=== PATIENT | male | born 1970 | race African-American/Black ===

== ENCOUNTER 2018-04-18 12:26 | Inpatient (IN) ==
[2018-04-18] MEDS ORDERED: ASPIRIN 325 MG TABLET PO STA (13:10)
[2018-04-18 13:33] LABS: Basophils % 0.4 % (0.0-0.8); Eosinophils # 0.2 10*3/uL (0.0-0.87); Eosinophils % 3.2 % (0.00-10.9); Hematocrit 41.6 VOL% (42.0-52.0); Immature Granulocytes % 0.3 %; Immature Granulocytes Absolute 0.02 #; Lymphocytes # 1.7 10*3/uL (1.4-4.0); Lymphocytes % 24.4 % (21.2-54.2); Mean Corpuscular HGB Conc 31.3 GM/DL (32-36); Mean Corpuscular Hemoglobin 22 PG (27-34); Mean Corpuscular Volume 70.5 FL (87-102); Mean Platelet Volume 10.2 FL (9.6-12.0); Monocytes # 0.9 10*3/uL (0.11-0.8); Monocytes % 12.5 % (1.7-12.7); Neutrophils # 4.1 10*3/uL (1.4-7.4); Neutrophils % 59.2 % (38.7-73.9); Platelet Count 254 T/CUMM (130-400); Red Cell Distribution Width 17.6 % (9.3-17.3)
[2018-04-18 13:53] LABS: Albumin 3.7 G/DL (3.4-5.0); Bilirubin,Total 0.5 MG/DL (0.2-1.0); Calcium 9.4 MG/DL (8.5-10.1); Osmolality,Calculated 292.4 MOS/KG (273-304); Potassium 3.6 MMOL/L (3.5-5.1); Total Protein 7.9 G/DL (6.4-8.3)
[2018-04-18] MEDS ORDERED: ZALEPLON 5 MG CAPSULE PO PRN (14:00)
[2018-04-18] MEDS ORDERED: MORPHINE 4 MG/1 ML VIAL IV PRN (14:00)
[2018-04-18] MEDS ORDERED: ONDANSETRON 4 MG/2 ML VIAL IV PRN (14:00)
[2018-04-18] MEDS ORDERED: DOCUSATE SODIUM 100 MG CAPSULE PO PRN (14:00)
[2018-04-18] MEDS ORDERED: MAGNESIUM SULF RIDER 2 GM in PREMIX 1 EACH IV PRN (14:00)
[2018-04-18] MEDS ORDERED: MAGNESIUM SULF RIDER 4 GM in PREMIX 1 EACH IV PRN (14:00)
[2018-04-18] MEDS ORDERED: POTASSIUM CHLORIDE 20 MEQ TABLET PO ONE (16:26)
[2018-04-18] MEDS ORDERED: GLUCAGON 1 MG VIAL IM PRN (16:32)
[2018-04-18] MEDS ORDERED: DEXTROSE 50% 25 GM/50 ML VIAL IV PRN (16:32)
[2018-04-18 18:03] LABS: Apearance,Urine CLEAR (Clear); Bilirubin,Urine Negative (Negative); Blood, Urine Negative (Negative); Glucose,Urine (UA) Negative (Negative); Ketones,Urine Negative (Negative); Nitrite,Urine Negative (Negative); Protein,Urine Negative; Urine Color Yellow (Yellow); Urine Urobilinogen < 2.0 EU/DL (0.2-1.0); WBC,Urine <1 /HPF (0-6)
[2018-04-18] MEDS: ALBUTEROL 0.63 MG/3 ML NEB RESP TX SCH (19:38)
[2018-04-18] MEDS ORDERED: MONTELUKAST 10 MG TABLET PO SCH (21:00)
[2018-04-18] MEDS: CARVEDILOL 25 MG TABLET PO SCH (22:11)
[2018-04-18] MEDS: FUROSEMIDE 40 MG/4 ML VIAL IV SCH (22:11)
[2018-04-18] MEDS: CITALOPRAM 20 MG TABLET PO SCH (22:11)
[2018-04-19] MEDS: INSULIN REGULAR 100 UNIT/ML SUBCUT SCH ×5 (00:57→21:30)
[2018-04-19 05:53] LABS: Basophils % 0.7 % (0.0-0.8); Eosinophils # 0.3 10*3/uL (0.0-0.87); Eosinophils % 5.3 % (0.00-10.9); Hematocrit 39.7 VOL% (42.0-52.0); Hemoglobin 12.2 GM/DL (14.0-18.0); Immature Granulocytes % 0.2 %; Immature Granulocytes Absolute 0.01 #; Lymphocytes # 2.3 10*3/uL (1.4-4.0); Lymphocytes % 37.4 % (21.2-54.2); Mean Corpuscular HGB Conc 30.7 GM/DL (32-36); Mean Corpuscular Hemoglobin 22 PG (27-34); Mean Corpuscular Volume 70.5 FL (87-102); Mean Platelet Volume 10.8 FL (9.6-12.0); Monocytes # 0.7 10*3/uL (0.11-0.8); Monocytes % 12.1 % (1.7-12.7); Neutrophils # 2.7 10*3/uL (1.4-7.4); Neutrophils % 44.3 % (38.7-73.9); Platelet Count 242 T/CUMM (130-400); Red Blood Count 5.63 MC/CUMM (3.8-5.5); Red Cell Distribution Width 16.5 % (9.3-17.3)
[2018-04-19 06:06] LABS: Calcium 9.3 MG/DL (8.5-10.1); Osmolality,Calculated 293.8 MOS/KG (273-304); Potassium 3.9 MMOL/L (3.5-5.1); Risk Ratio 2.9
[2018-04-19] MEDS: ALBUTEROL 0.63 MG/3 ML NEB RESP TX SCH ×2 (07:27→19:45)
[2018-04-19] MEDS ORDERED: ASPIRIN EC 325 MG TABLET PO SCH (09:00)
[2018-04-19] MEDS ORDERED: PANTOPRAZOLE 40 MG TABLET PO SCH (09:00)
[2018-04-19] MEDS: CARVEDILOL 25 MG TABLET PO SCH ×2 (14:21→21:23)
[2018-04-19] MEDS: FUROSEMIDE 40 MG/4 ML VIAL IV SCH (14:22)
[2018-04-19] MEDS: ISOSORBIDE MONONITRATE 30 MG TABLET PO SCH (14:22)
[2018-04-19] MEDS: VITAMIN E 400 UNIT CAPSULE PO SCH (14:23)
[2018-04-19] MEDS: ALLOPURINOL 300 MG TABLET PO SCH (14:23)
[2018-04-19] MEDS: CHOLECALCIFEROL 400 UNIT TABLET PO SCH (14:23)
[2018-04-19] MEDS: MAGNESIUM OXIDE 400 MG TABLET PO SCH (14:23)
[2018-04-19] MEDS ORDERED: POTASSIUM CHLORIDE RIDER 10 MEQ in PREMIX 1 EACH IV PRN (18:48)
[2018-04-19] MEDS ORDERED: FLUTICASONE 50 MCG NASAL SPRAY 16 GM BOTTLE BOTH NARES PRN (18:50)
[2018-04-19] MEDS ORDERED: COLCHICINE 0.6 MG TABLET PO PRN (18:50)
[2018-04-19] MEDS ORDERED: ALBUTEROL 2.5 MG/3 ML NEB RESP TX PRN (18:50)
[2018-04-19] MEDS: SACUBITRIL/VALSARTAN 49-51 MG TABLET PO SCH (21:22)
[2018-04-19] MEDS: MONTELUKAST 10 MG TABLET PO SCH (21:23)
[2018-04-19] MEDS: CITALOPRAM 20 MG TABLET PO SCH (21:23)
[2018-04-20] MEDS: SODIUM CHLORIDE 0.45% 1,000 ML IV SCH (04:19)
[2018-04-20 04:22] LABS: Basophils # 0.1 10*3/uL (0.0-0.2); Basophils % 0.9 % (0.0-0.8); Eosinophils # 0.3 10*3/uL (0.0-0.87); Eosinophils % 5.5 % (0.00-10.9); Hematocrit 39.9 VOL% (42.0-52.0); Hemoglobin 12.4 GM/DL (14.0-18.0); Immature Granulocytes % 0.2 %; Immature Granulocytes Absolute 0.01 #; Lymphocytes # 1.9 10*3/uL (1.4-4.0); Lymphocytes % 34.3 % (21.2-54.2); Mean Corpuscular HGB Conc 31.1 GM/DL (32-36); Mean Corpuscular Hemoglobin 22 PG (27-34); Mean Platelet Volume 10.8 FL (9.6-12.0); Monocytes # 0.7 10*3/uL (0.11-0.8); Neutrophils # 2.7 10*3/uL (1.4-7.4); Neutrophils % 47.1 % (38.7-73.9); Platelet Count 242 T/CUMM (130-400); Red Blood Count 5.62 MC/CUMM (3.8-5.5); White Blood Count 5.7 T/CUMM (4-12)
[2018-04-20 04:49] LABS: Calcium 9.2 MG/DL (8.5-10.1); Osmolality,Calculated 288.8 MOS/KG (273-304); Potassium 3.4 MMOL/L (3.5-5.1)
[2018-04-20 04:52] LABS: % Iron Saturation 11.1 % (18-50)
[2018-04-20 05:00] LABS: Folate 21.1 NG/ML (5.4-24.0)
[2018-04-20] MEDS: ALBUTEROL 0.63 MG/3 ML NEB RESP TX SCH ×2 (07:22→19:38)
[2018-04-20] MEDS ORDERED: LIDOCAINE 1% 20 ML VIAL ONE (08:29)
[2018-04-20] MEDS ORDERED: HEPARIN/NACL 0.9% 2 UNITS/ML 1,000 ML IV ONE (08:29)
[2018-04-20] MEDS ORDERED: HEPARIN 5,000 UNIT/1 ML VIAL ONE (09:21)
[2018-04-20] MEDS ORDERED: VERAPAMIL 5 MG/2 ML VIAL ONE (09:21)
[2018-04-20] MEDS ORDERED: NITROGLYCERIN DRIP 50 MG/250 ML BOTTLE IV ONE (09:24)
[2018-04-20] MEDS ORDERED: ACETAMINOPHEN 325 MG TABLET PO PRN (10:03)
[2018-04-20] MEDS ORDERED: PHENYLEPHRINE 1 MG/10 ML SYRINGE IV ONE (10:08)
[2018-04-20] MEDS ORDERED: fentaNYL 100 MCG/2 ML VIAL ONE (10:08)
[2018-04-20] MEDS ORDERED: MIDAZOLAM 2 MG/2 ML VIAL ONE (10:09)
[2018-04-20] MEDS ORDERED: LIDOCAINE 2% 5 ML VIAL ONE (10:09)
[2018-04-20] MEDS ORDERED: PROPOFOL 200 MG/20 ML VIAL IV ONE (10:09)
[2018-04-20] MEDS ORDERED: SEVOFLURANE 1 UNIT/15 MINUTE INH ONE (10:28)
[2018-04-20] MEDS ORDERED: ePHEDrine 50 MG/ML AMP ONE (10:29)
[2018-04-20] MEDS: INSULIN REGULAR 100 UNIT/ML SUBCUT SCH ×4 (10:59→21:06)
[2018-04-20] MEDS: INSULIN LISPRO 100 UNIT/ML SUBCUT SCH ×3 (12:51→16:44)
[2018-04-20] MEDS: SPIRONOLACTONE 50 MG TABLET PO SCH (12:53)
[2018-04-20] MEDS: SACUBITRIL/VALSARTAN 49-51 MG TABLET PO SCH ×2 (12:53→21:06)
[2018-04-20] MEDS: MAGNESIUM OXIDE 400 MG TABLET PO SCH ×2 (12:53→12:57)
[2018-04-20] MEDS: MONTELUKAST 10 MG TABLET PO SCH ×2 (12:54→21:06)
[2018-04-20] MEDS: CHOLECALCIFEROL 400 UNIT TABLET PO SCH (12:54)
[2018-04-20] MEDS: ISOSORBIDE MONONITRATE 30 MG TABLET PO SCH (12:54)
[2018-04-20] MEDS: ALLOPURINOL 300 MG TABLET PO SCH (12:55)
[2018-04-20] MEDS: FERROUS SULFATE 325 MG TABLET PO SCH ×2 (12:55→21:06)
[2018-04-20] MEDS: VITAMIN E 400 UNIT CAPSULE PO SCH ×2 (12:55→12:58)
[2018-04-20] MEDS: PANTOPRAZOLE 40 MG TABLET PO SCH (12:55)
[2018-04-20] MEDS: CARVEDILOL 25 MG TABLET PO SCH ×2 (12:55→21:06)
[2018-04-20] MEDS: INSULIN ASPART PROTAMINE/ASPART 70/30 100 UNIT/ML SUBCUT SCH ×2 (12:58→19:45)
[2018-04-20] MEDS: ASPIRIN EC 81 MG TABLET PO SCH (12:58)
[2018-04-20] MEDS: ENOXAPARIN 40 MG/0.4 ML SYRINGE SUBCUT SCH (19:46)
[2018-04-20] MEDS: CITALOPRAM 20 MG TABLET PO SCH (21:06)
[2018-04-21] MEDS: ENOXAPARIN 40 MG/0.4 ML SYRINGE SUBCUT SCH
[2018-04-21] MEDS: SODIUM CHLORIDE 0.45% 1,000 ML IV SCH ×2 (01:23→08:27)
[2018-04-21] MEDS: ENOXAPARIN 30 MG/0.3 ML SYRINGE SUBCUT SCH (04:03)
[2018-04-21 05:14] LABS: Basophils % 0.8 % (0.0-0.8); Eosinophils # 0.3 10*3/uL (0.0-0.87); Eosinophils % 5.2 % (0.00-10.9); Hemoglobin 12.7 GM/DL (14.0-18.0); Immature Granulocytes % 0.2 %; Immature Granulocytes Absolute 0.01 #; Lymphocytes # 1.7 10*3/uL (1.4-4.0); Lymphocytes % 32.8 % (21.2-54.2); Mean Corpuscular HGB Conc 30.2 GM/DL (32-36); Mean Corpuscular Hemoglobin 22 PG (27-34); Mean Corpuscular Volume 71.4 FL (87-102); Mean Platelet Volume 11.2 FL (9.6-12.0); Monocytes # 0.6 10*3/uL (0.11-0.8); Monocytes % 11.9 % (1.7-12.7); Neutrophils # 2.6 10*3/uL (1.4-7.4); Neutrophils % 49.1 % (38.7-73.9); Platelet Count 260 T/CUMM (130-400); Red Blood Count 5.88 MC/CUMM (3.8-5.5); Red Cell Distribution Width 17.3 % (9.3-17.3); White Blood Count 5.2 T/CUMM (4-12)
[2018-04-21 05:31] LABS: Calcium 8.9 MG/DL (8.5-10.1); Potassium 3.6 MMOL/L (3.5-5.1)
[2018-04-21] MEDS: ALBUTEROL 0.63 MG/3 ML NEB RESP TX SCH ×2 (07:35→19:32)
[2018-04-21] MEDS: INSULIN REGULAR 100 UNIT/ML SUBCUT SCH ×4 (07:51→20:33)
[2018-04-21] MEDS: INSULIN LISPRO 100 UNIT/ML SUBCUT SCH ×3 (08:27→17:12)
[2018-04-21] MEDS: CHOLECALCIFEROL 400 UNIT TABLET PO SCH (08:28)
[2018-04-21] MEDS: VITAMIN E 400 UNIT CAPSULE PO SCH ×2 (08:29→13:32)
[2018-04-21] MEDS: MONTELUKAST 10 MG TABLET PO SCH ×2 (08:29→20:33)
[2018-04-21] MEDS: PANTOPRAZOLE 40 MG TABLET PO SCH (08:29)
[2018-04-21] MEDS: SPIRONOLACTONE 50 MG TABLET PO SCH (08:29)
[2018-04-21] MEDS: ISOSORBIDE MONONITRATE 30 MG TABLET PO SCH (08:29)
[2018-04-21] MEDS: ALLOPURINOL 300 MG TABLET PO SCH (08:30)
[2018-04-21] MEDS: CARVEDILOL 25 MG TABLET PO SCH (08:30)
[2018-04-21] MEDS: MAGNESIUM OXIDE 400 MG TABLET PO SCH ×2 (08:30→13:26)
[2018-04-21] MEDS: SACUBITRIL/VALSARTAN 49-51 MG TABLET PO SCH ×2 (08:30→20:37)
[2018-04-21] MEDS: FERROUS SULFATE 325 MG TABLET PO SCH ×2 (08:30→20:33)
[2018-04-21] MEDS: ASPIRIN EC 81 MG TABLET PO SCH (08:30)
[2018-04-21] MEDS: FUROSEMIDE 80 MG TABLET PO SCH (12:34)
[2018-04-21] MEDS: INSULIN ASPART PROTAMINE/ASPART 70/30 100 UNIT/ML SUBCUT SCH ×2 (13:32→17:09)
[2018-04-21 14:17] LABS: ABG Base Excess 5.9 MMOL/L (-2.5-2.5); ABG HCO3 31.2 MMOL/L (20-26); ABG Oxygen Saturation 97.5 % (95-100); ABG PCO2 48.1 MM HG (35-48); ABG PO2 106.2 MM HG (80-95); ABG TCO2 32.7 MMOL/L (23-27)
[2018-04-21] MEDS: NEBIVOLOL 10 MG TABLET PO SCH (20:33)
[2018-04-21] MEDS: CITALOPRAM 20 MG TABLET PO SCH (20:33)
[2018-04-22] MEDS: ENOXAPARIN 30 MG/0.3 ML SYRINGE SUBCUT SCH (05:06)
[2018-04-22 05:15] LABS: Basophils % 0.6 % (0.0-0.8); Eosinophils # 0.2 10*3/uL (0.0-0.87); Eosinophils % 4.4 % (0.00-10.9); Hematocrit 43.8 VOL% (42.0-52.0); Hemoglobin 13.6 GM/DL (14.0-18.0); Immature Granulocytes % 0.2 %; Immature Granulocytes Absolute 0.01 #; Lymphocytes # 2.1 10*3/uL (1.4-4.0); Lymphocytes % 39.7 % (21.2-54.2); Mean Corpuscular HGB Conc 31.1 GM/DL (32-36); Mean Corpuscular Hemoglobin 22 PG (27-34); Mean Corpuscular Volume 69.4 FL (87-102); Mean Platelet Volume 10.2 FL (9.6-12.0); Monocytes # 0.7 10*3/uL (0.11-0.8); Monocytes % 12.5 % (1.7-12.7); Neutrophils # 2.3 10*3/uL (1.4-7.4); Neutrophils % 42.6 % (38.7-73.9); Platelet Count 313 T/CUMM (130-400); Red Blood Count 6.31 MC/CUMM (3.8-5.5); Red Cell Distribution Width 17.8 % (9.3-17.3); White Blood Count 5.3 T/CUMM (4-12)
[2018-04-22 05:38] LABS: Calcium 9.3 MG/DL (8.5-10.1); Osmolality,Calculated 279.1 MOS/KG (273-304)
[2018-04-22] MEDS: ALBUTEROL 0.63 MG/3 ML NEB RESP TX SCH ×2 (07:31→19:42)
[2018-04-22] MEDS: INSULIN REGULAR 100 UNIT/ML SUBCUT SCH ×4 (08:15→20:45)
[2018-04-22] MEDS: CHOLECALCIFEROL 400 UNIT TABLET PO SCH (08:44)
[2018-04-22] MEDS: PANTOPRAZOLE 40 MG TABLET PO SCH (08:44)
[2018-04-22] MEDS: SACUBITRIL/VALSARTAN 49-51 MG TABLET PO SCH ×2 (08:45→20:45)
[2018-04-22] MEDS: MAGNESIUM OXIDE 400 MG TABLET PO SCH ×2 (08:45→09:28)
[2018-04-22] MEDS: VITAMIN E 400 UNIT CAPSULE PO SCH ×2 (08:45→09:28)
[2018-04-22] MEDS: SPIRONOLACTONE 50 MG TABLET PO SCH (08:45)
[2018-04-22] MEDS: ALLOPURINOL 300 MG TABLET PO SCH (08:46)
[2018-04-22] MEDS: MONTELUKAST 10 MG TABLET PO SCH ×2 (08:46→20:44)
[2018-04-22] MEDS: FUROSEMIDE 80 MG TABLET PO SCH (08:46)
[2018-04-22] MEDS: FERROUS SULFATE 325 MG TABLET PO SCH ×2 (08:46→20:45)
[2018-04-22] MEDS: ISOSORBIDE MONONITRATE 30 MG TABLET PO SCH (08:46)
[2018-04-22] MEDS: ASPIRIN EC 81 MG TABLET PO SCH (08:46)
[2018-04-22] MEDS: INSULIN LISPRO 100 UNIT/ML SUBCUT SCH ×3 (08:50→17:32)
[2018-04-22] MEDS: INSULIN ASPART PROTAMINE/ASPART 70/30 100 UNIT/ML SUBCUT SCH ×2 (08:50→17:33)
[2018-04-22] MEDS ORDERED: FUROSEMIDE 40 MG/4 ML VIAL IV ONE (11:10)
[2018-04-22] MEDS: NEBIVOLOL 10 MG TABLET PO SCH (20:45)
[2018-04-22] MEDS: acetaZOLAMIDE 250 MG TABLET PO SCH (20:45)
[2018-04-22] MEDS: CITALOPRAM 20 MG TABLET PO SCH (20:45)
[2018-04-23] MEDS: ENOXAPARIN 30 MG/0.3 ML SYRINGE SUBCUT SCH (04:33)
[2018-04-23 05:42] LABS: Calcium 8.8 MG/DL (8.5-10.1); Osmolality,Calculated 282.1 MOS/KG (273-304); Potassium 3.6 MMOL/L (3.5-5.1)
[2018-04-23] MEDS: ALBUTEROL 0.63 MG/3 ML NEB RESP TX SCH (07:45)
[2018-04-23] MEDS: INSULIN LISPRO 100 UNIT/ML SUBCUT SCH (08:23)
[2018-04-23] MEDS: FUROSEMIDE 80 MG TABLET PO SCH (08:24)
[2018-04-23] MEDS: acetaZOLAMIDE 250 MG TABLET PO SCH (08:24)
[2018-04-23] MEDS: FERROUS SULFATE 325 MG TABLET PO SCH (08:24)
[2018-04-23] MEDS: ALLOPURINOL 300 MG TABLET PO SCH (08:24)
[2018-04-23] MEDS: MONTELUKAST 10 MG TABLET PO SCH (08:24)
[2018-04-23] MEDS: MAGNESIUM OXIDE 400 MG TABLET PO SCH ×2 (08:24→08:25)
[2018-04-23] MEDS: ASPIRIN EC 81 MG TABLET PO SCH (08:24)
[2018-04-23] MEDS: VITAMIN E 400 UNIT CAPSULE PO SCH ×2 (08:24→08:26)
[2018-04-23] MEDS: PANTOPRAZOLE 40 MG TABLET PO SCH (08:24)
[2018-04-23] MEDS: SPIRONOLACTONE 50 MG TABLET PO SCH (08:25)
[2018-04-23] MEDS: CHOLECALCIFEROL 400 UNIT TABLET PO SCH (08:25)
[2018-04-23] MEDS: INSULIN REGULAR 100 UNIT/ML SUBCUT SCH (08:25)
[2018-04-23] MEDS: INSULIN ASPART PROTAMINE/ASPART 70/30 100 UNIT/ML SUBCUT SCH (08:33)
[2018-04-23] MEDS: ISOSORBIDE MONONITRATE 30 MG TABLET PO SCH (08:33)
[2018-04-23] MEDS: SACUBITRIL/VALSARTAN 49-51 MG TABLET PO SCH (08:33)
[2018-04-23 08:52] VITALS: BP 124/63
[2018-04-23] MEDS ORDERED: INFLUENZA VIRUS VACCINE 0.5 ML SYRINGE IM ONE (10:04)
[2018-04-23] MEDS ORDERED: PNEUMOCOCCAL VACCINE (23 VALENT) 0.5 ML VIAL IM ONE (10:11)
== END 2018-04-23 12:05 | disposition home health service (06) | DRG 206 ==
LOC: N.ED 12:26 → N.EDINP 12:26 → N.2W 17:11 → N.TELES 18:20
PROVIDERS: ADMIT Internal Medicine Cardiovascular Disease; ATTEND Internal Medicine Cardiovascular Disease

== ENCOUNTER 2021-05-03 15:15 | Inpatient (IN) ==
[2021-05-03] MEDS ORDERED: ALBUTEROL 2.5 MG/3 ML NEB RESP TX STA (16:30)
[2021-05-03 16:41] LABS: Basophils # 0.1 10*3/uL (0.0-0.2); Basophils % 0.7 % (0.0-0.8); Eosinophils # 0.3 10*3/uL (0.0-0.87); Eosinophils % 3.7 % (0.00-10.9); Hematocrit 44.3 VOL% (42.0-52.0); Hemoglobin 13.6 GM/DL (14.0-18.0); Immature Granulocytes % 0.2 %; Immature Granulocytes Absolute 0.02 #; Lymphocytes # 1.9 10*3/uL (1.4-4.0); Lymphocytes % 23.6 % (21.2-54.2); Mean Corpuscular HGB Conc 30.7 GM/DL (32-36); Mean Corpuscular Volume 65.6 FL (87-102); Monocytes % 10.6 % (1.7-12.7); NRBC # 0.05 10*3/uL; Neutrophils % 61.2 % (38.7-73.9); Platelet Count 296 T/CUMM (130-400); Red Blood Count 6.75 MC/CUMM (3.8-5.5); Red Cell Distribution Width 22.5 % (9.3-17.3)
[2021-05-03 16:48] LABS: ABG Base Excess 12.1 MMOL/L (-2.5-2.5); ABG HCO3 35.9 MMOL/L (20-26); ABG Oxygen Saturation 99.5 % (95-100); ABG PH 7.542 (7.35-7.45); ABG TCO2 30.7 MMOL/L (23-27)
[2021-05-03 16:49] LABS: Albumin 2.9 G/DL (3.4-5.0); Bilirubin,Total 1.6 MG/DL (0.20-1.00); Calcium 9.3 MG/DL (8.5-10.1); Osmolality,Calculated 284.9 MOS/KG (273-304); Potassium 3.3 MMOL/L (3.5-5.1); Total Protein 8.4 G/DL (6.4-8.2)
[2021-05-03] MEDS ORDERED: FUROSEMIDE 40 MG/4 ML VIAL IV STA (17:32)
[2021-05-03 17:35] LABS: INR 1.7; PT Patient Result 18.3 SECS (10.5-12.0)
[2021-05-03] MEDS ORDERED: ONDANSETRON 4 MG/2 ML VIAL IV PRN (18:09)
[2021-05-03] MEDS ORDERED: GLUCAGON 1 MG VIAL IM PRN (18:09)
[2021-05-03] MEDS ORDERED: DEXTROSE 50% 25 GM/50 ML VIAL IV PRN (18:09)
[2021-05-03] MEDS ORDERED: ACETAMINOPHEN 325 MG TABLET PO PRN (18:09)
[2021-05-03] MEDS ORDERED: tiZANidine 4 MG TABLET PO PRN (20:33)
[2021-05-03] MEDS ORDERED: FLUTICASONE 50 MCG NASAL SPRAY 16 GM BOTTLE BOTH NARES PRN (20:33)
[2021-05-03] MEDS ORDERED: metOLazone 5 MG TABLET PO PRN (20:33)
[2021-05-03] MEDS: SACUBITRIL/VALSARTAN 49-51 MG TABLET PO SCH (22:31)
[2021-05-03] MEDS: FAMOTIDINE 20 MG TABLET PO SCH (22:31)
[2021-05-03] MEDS: MONTELUKAST 10 MG TABLET PO SCH (22:31)
[2021-05-03] MEDS: DOCUSATE SODIUM 100 MG CAPSULE PO SCH (22:31)
[2021-05-03] MEDS: POTASSIUM CHLORIDE 20 MEQ TABLET PO SCH (22:31)
[2021-05-03] MEDS: LEVOFLOXACIN INJ 750 MG/150 ML PREMIX IV SCH (22:32)
[2021-05-03] MEDS: ENOXAPARIN 30 MG/0.3 ML SYRINGE SUBCUT SCH (22:32)
[2021-05-03] MEDS: INSULIN LISPRO 100 UNIT/ML SUBCUT SCH (22:32)
[2021-05-04 05:05] LABS: Basophils # 0.1 10*3/uL (0.0-0.2); Basophils % 0.7 % (0.0-0.8); Eosinophils # 0.2 10*3/uL (0.0-0.87); Eosinophils % 2.8 % (0.00-10.9); Hematocrit 41.7 VOL% (42.0-52.0); Hemoglobin 13.3 GM/DL (14.0-18.0); Immature Granulocytes % 0.4 %; Immature Granulocytes Absolute 0.03 #; Lymphocytes # 1.3 10*3/uL (1.4-4.0); Lymphocytes % 17.7 % (21.2-54.2); Mean Corpuscular HGB Conc 31.9 GM/DL (32-36); Mean Corpuscular Volume 65.4 FL (87-102); Monocytes % 10.4 % (1.7-12.7); NRBC # 0.03 10*3/uL; Red Blood Count 6.38 MC/CUMM (3.8-5.5); Red Cell Distribution Width 21.8 % (9.3-17.3); White Blood Count 7.1 T/CUMM (4-12)
[2021-05-04 05:07] LABS: Platelet Count 213 T/CUMM (130-400)
[2021-05-04 05:22] LABS: Calcium 9.2 MG/DL (8.5-10.1); Osmolality,Calculated 285.8 MOS/KG (273-304); Potassium 3.4 MMOL/L (3.5-5.1); Risk Ratio 2.63
[2021-05-04] MEDS: INSULIN LISPRO 100 UNIT/ML SUBCUT SCH ×4 (07:00→22:47)
[2021-05-04] MEDS: FUROSEMIDE 40 MG/4 ML VIAL IV SCH ×2 (08:36→16:19)
[2021-05-04] MEDS: MAGNESIUM OXIDE 400 MG TABLET PO SCH (08:36)
[2021-05-04] MEDS: POTASSIUM CHLORIDE 20 MEQ TABLET PO SCH ×2 (08:36→21:57)
[2021-05-04] MEDS: PANTOPRAZOLE 40 MG TABLET PO SCH (08:37)
[2021-05-04] MEDS: ASPIRIN EC 81 MG TABLET PO SCH (08:37)
[2021-05-04] MEDS: DOCUSATE SODIUM 100 MG CAPSULE PO SCH ×2 (08:37→21:58)
[2021-05-04] MEDS: SACUBITRIL/VALSARTAN 49-51 MG TABLET PO SCH ×2 (08:37→21:58)
[2021-05-04] MEDS: predniSONE 20 MG TABLET PO SCH (13:50)
[2021-05-04] MEDS: BENZONATATE 100 MG CAPSULE PO SCH ×3 (13:50→21:58)
[2021-05-04] MEDS: ALBUTEROL/IPRATROPIUM 3 ML NEB RESP TX SCH ×2 (14:35→20:50)
[2021-05-04] MEDS ORDERED: ALBUTEROL/IPRATROPIUM 3 ML NEB RESP TX SCH (15:00)
[2021-05-04] MEDS: ENOXAPARIN 30 MG/0.3 ML SYRINGE SUBCUT SCH (18:24)
[2021-05-04] MEDS ORDERED: CITALOPRAM 20 MG TABLET PO SCH (19:00)
[2021-05-04] MEDS: FAMOTIDINE 20 MG TABLET PO SCH (21:57)
[2021-05-04] MEDS: MONTELUKAST 10 MG TABLET PO SCH (21:58)
[2021-05-05] MEDS: ALBUTEROL/IPRATROPIUM 3 ML NEB RESP TX SCH ×4 (02:08→19:48)
[2021-05-05 05:19] LABS: Basophils % 0.3 % (0.0-0.8); Eosinophils % 0.2 % (0.00-10.9); Hematocrit 41.8 VOL% (42.0-52.0); Hemoglobin 13.2 GM/DL (14.0-18.0); Immature Granulocytes % 0.5 %; Immature Granulocytes Absolute 0.03 #; Lymphocytes # 0.7 10*3/uL (1.4-4.0); Lymphocytes % 11.7 % (21.2-54.2); Mean Corpuscular HGB Conc 31.6 GM/DL (32-36); Mean Corpuscular Volume 65.3 FL (87-102); Monocytes % 7.3 % (1.7-12.7); NRBC # 0.02 10*3/uL; Platelet Count 215 T/CUMM (130-400); Red Cell Distribution Width 21.6 % (9.3-17.3); White Blood Count 6.3 T/CUMM (4-12)
[2021-05-05 05:34] LABS: Calcium 9.4 MG/DL (8.5-10.1); Osmolality,Calculated 290.4 MOS/KG (273-304); Potassium 3.5 MMOL/L (3.5-5.1)
[2021-05-05] MEDS ORDERED: DIAZEPAM 5 MG TABLET PO ONE (07:00)
[2021-05-05] MEDS ORDERED: ceFAZolin 1,000 MG VIAL IRRIG ONE (07:00)
[2021-05-05] MEDS ORDERED: diphenhydrAMINE CAP 25 MG CAPSULE PO ONE (07:00)
[2021-05-05] MEDS ORDERED: BENZOCAINE/MENTHOL LOZENGE 18/BOX PO PRN (08:54)
[2021-05-05] MEDS ORDERED: predniSONE 20 MG TABLET PO SCH (09:00)
[2021-05-05] MEDS ORDERED: BISACODYL 5 MG TABLET PO PRN ×2 (09:02→09:30)
[2021-05-05] MEDS ORDERED: LIDOCAINE 1%/EPI INJ 20 ML VIAL ONE (10:43)
[2021-05-05] MEDS ORDERED: HYDROmorphone 2 MG/1 ML VIAL ONE (10:56)
[2021-05-05] MEDS ORDERED: MIDAZOLAM 2 MG/2 ML VIAL ONE (10:56)
[2021-05-05] MEDS ORDERED: ceFAZolin 1,000 MG VIAL ONE (10:58)
[2021-05-05] MEDS ORDERED: TISSUE ADHESIVE 1 EACH APPLICATOR TOP ONE (11:13)
[2021-05-05] MEDS: INSULIN LISPRO 100 UNIT/ML SUBCUT SCH ×4 (12:21→21:30)
[2021-05-05] MEDS: BENZONATATE 100 MG CAPSULE PO SCH ×3 (12:21→21:29)
[2021-05-05] MEDS: SODIUM CHLORIDE 0.9% 1,000 ML IV SCH (12:23)
[2021-05-05] MEDS: FUROSEMIDE 40 MG/4 ML VIAL IV SCH ×2 (12:43→16:28)
[2021-05-05] MEDS: PANTOPRAZOLE 40 MG TABLET PO SCH (12:43)
[2021-05-05] MEDS: MAGNESIUM OXIDE 400 MG TABLET PO SCH (12:43)
[2021-05-05] MEDS: DOCUSATE SODIUM 100 MG CAPSULE PO SCH ×2 (12:44→21:29)
[2021-05-05] MEDS: SACUBITRIL/VALSARTAN 49-51 MG TABLET PO SCH ×3 (12:44→21:29)
[2021-05-05] MEDS: POTASSIUM CHLORIDE 20 MEQ TABLET PO SCH ×2 (12:44→21:29)
[2021-05-05] MEDS: ASPIRIN EC 81 MG TABLET PO SCH (12:44)
[2021-05-05] MEDS: predniSONE 20 MG TABLET PO SCH (13:02)
[2021-05-05] MEDS: ENOXAPARIN 30 MG/0.3 ML SYRINGE SUBCUT SCH (17:57)
[2021-05-05] MEDS: MONTELUKAST 10 MG TABLET PO SCH (21:28)
[2021-05-05] MEDS: FAMOTIDINE 20 MG TABLET PO SCH (21:29)
[2021-05-05] MEDS: LEVOFLOXACIN INJ 750 MG/150 ML PREMIX IV SCH (21:30)
[2021-05-06] MEDS: ALBUTEROL/IPRATROPIUM 3 ML NEB RESP TX SCH ×2 (01:04→07:10)
[2021-05-06 05:19] LABS: Basophils % 0.4 % (0.0-0.8); Eosinophils % 0.1 % (0.00-10.9); Hematocrit 41.7 VOL% (42.0-52.0); Hemoglobin 13.4 GM/DL (14.0-18.0); Immature Granulocytes % 0.4 %; Immature Granulocytes Absolute 0.03 #; Lymphocytes # 1.1 10*3/uL (1.4-4.0); Lymphocytes % 14.3 % (21.2-54.2); Mean Corpuscular HGB Conc 32.1 GM/DL (32-36); Mean Corpuscular Volume 65.4 FL (87-102); Mean Platelet Volume 9.6 FL (9.6-12.0); Monocytes % 9.4 % (1.7-12.7); NRBC # 0.03 10*3/uL; Neutrophils % 75.4 % (38.7-73.9); Platelet Count 192 T/CUMM (130-400); Red Blood Count 6.38 MC/CUMM (3.8-5.5); Red Cell Distribution Width 21.8 % (9.3-17.3); White Blood Count 7.3 T/CUMM (4-12)
[2021-05-06 05:36] LABS: Calcium 9.3 MG/DL (8.5-10.1); Osmolality,Calculated 286.7 MOS/KG (273-304); Potassium 4.1 MMOL/L (3.5-5.1)
[2021-05-06] MEDS: DOCUSATE SODIUM 100 MG CAPSULE PO SCH (10:29)
[2021-05-06] MEDS: PANTOPRAZOLE 40 MG TABLET PO SCH (10:30)
[2021-05-06] MEDS: ASPIRIN EC 81 MG TABLET PO SCH (10:30)
[2021-05-06] MEDS: BENZONATATE 100 MG CAPSULE PO SCH (10:30)
[2021-05-06] MEDS: MAGNESIUM OXIDE 400 MG TABLET PO SCH (10:30)
[2021-05-06] MEDS: POTASSIUM CHLORIDE 20 MEQ TABLET PO SCH (10:30)
[2021-05-06] MEDS: SACUBITRIL/VALSARTAN 49-51 MG TABLET PO SCH (10:30)
[2021-05-06] MEDS: FUROSEMIDE 40 MG/4 ML VIAL IV SCH (10:31)
[2021-05-06] MEDS: predniSONE 20 MG TABLET PO SCH (10:31)
[2021-05-06 11:43] VITALS: BP 92/71
[2021-05-06] MEDS: SODIUM CHLORIDE 0.9% 1,000 ML IV SCH (11:50)
[2021-05-06] MEDS: INSULIN LISPRO 100 UNIT/ML SUBCUT SCH (11:50)
== END 2021-05-06 13:01 | disposition home or self-care (01) | DRG 245 ==
LOC: N.ED 15:15 → N.EDINP 18:09 → N.TELEN 20:21
PROVIDERS: ADMIT Internal Medicine; ATTEND Internal Medicine